=== PATIENT | female | born 1940 | race Caucasian/White ===

== ENCOUNTER → 2016-07-13 | Outpatient (CLI) | payer OTHER | LOC: KOH-I 11:40 | DX: J96.21 Acute and chronic respiratory failure with hypoxia (principal); R91.8 Other nonspecific abnormal finding of lung field | CPT/HCPCS: 71020 ==

== ENCOUNTER → 2016-08-01 | Outpatient (CLI) | payer OTHER | LOC: CT 08:54 | DX: J96.11 Chronic respiratory failure with hypoxia (principal); J43.2 Centrilobular emphysema | CPT/HCPCS: 71260; J7050; Q9962 ==

== ENCOUNTER → 2016-08-16 | Outpatient (CLI) | payer OTHER | LOC: RT 11:36 | DX: R09.02 Hypoxemia (principal) | CPT/HCPCS: 36600; 82803 ==

== ENCOUNTER 2020-03-17 18:18 | Inpatient (IN) | payer OTHER ==
[~2020-03-17] VITALS: Ht 180.3 cm; Wt 60.4 kg
[~2020-03-17 18:18] MED LIST: ALBUTEROL2.5 MG/3 M INH; CARDIZEM CD180 MG PO; COLACE 100MG C100 MG PO; IBUPROFEN800 MG PO; K-DUR TAB 20 M20 MEQ PO; LEVAQUIN500 MG PO; LEXAPRO10 MG PO; NORCO 7.5-3251 EACH PO; PHENERGAN 25 MG25 M1 PO; PREDNISONE20 MG PO; PROTONIX40 MG PO; RIZATRIPTAN10 MG PO; SPIRIVA RESPIMAT4 GM INH; SYMBICORT 16010.2 GM INH; SYNTHROID88 MCG PO; TOPAMAX 25 MG T25 MG PO; XYZAL5 MG PO
[2020-03-17 19:37] LABS: HEMOGLOBIN 11.1 gm/dl (12.3-15.3); RED BLOOD COUNT 3.7 M/UL (4.00-5.10); WHITE BLOOD COUNT 8.5 K/UL (4.5-11.0)
[2020-03-17 20:00] LABS: BUN/CREATININE RATIO 13 (0-10)
[2020-03-17] MEDS ORDERED: CLONIDINE1 EACH TD (20:51)
[2020-03-17] MEDS ORDERED: BREZTRI AEROS10.7 GM INH (21:00)
[2020-03-17] MEDS ORDERED: COZAAR 50MG TAB50 MG PO (21:08)
[2020-03-17] MEDS ORDERED: LINZESS290 MCG PO (21:09)
[2020-03-17] MEDS ORDERED: SYNTHROID88 MCG PO (21:10)
[2020-03-18 04:23] LABS: WHITE BLOOD COUNT 7.7 K/UL (4.5-11.0)
[2020-03-18 04:24] LABS: HEMOGLOBIN 8.7 gm/dl (12.3-15.3); RED BLOOD COUNT 2.84 M/UL (4.00-5.10)
[2020-03-18 04:36] LABS: BUN/CREATININE RATIO 13 (0-10)
[2020-03-19 06:21] LABS: BUN/CREATININE RATIO 11 (0-10); HEMOGLOBIN 7.3 gm/dl (12.3-15.3); WHITE BLOOD COUNT 9.2 K/UL (4.5-11.0)
[2020-03-19 06:32] LABS: RED BLOOD COUNT 2.43 M/UL (4.00-5.10)
[2020-03-19 12:58] LABS: HEMOGLOBIN 9.8 gm/dl (12.3-15.3); RED BLOOD COUNT 3.17 M/UL (4.00-5.10); WHITE BLOOD COUNT 13.6 K/UL (4.5-11.0)
[2020-03-20 04:49] LABS: BUN/CREATININE RATIO 12 (0-10)
[2020-03-20 06:40] LABS: RED BLOOD COUNT 2.16 M/UL (4.00-5.10); WHITE BLOOD COUNT 8.8 K/UL (4.5-11.0)
[2020-03-20 06:45] LABS: HEMOGLOBIN 6.7 gm/dl (12.3-15.3)
[2020-03-20 17:06] LABS: WHITE BLOOD COUNT 9.5 K/UL (4.5-11.0)
[2020-03-20 17:09] LABS: HEMOGLOBIN 8.8 gm/dl (12.3-15.3); RED BLOOD COUNT 2.74 M/UL (4.00-5.10)
[2020-03-21 04:34] LABS: HEMOGLOBIN 8.3 gm/dl (12.3-15.3); RED BLOOD COUNT 2.59 M/UL (4.00-5.10); WHITE BLOOD COUNT 8.5 K/UL (4.5-11.0)
[2020-03-21 05:12] LABS: BUN/CREATININE RATIO 10 (0-10)
[2020-03-21] MEDS ORDERED: LOVENOX40 MG/0.4 SQ (12:10)
[2020-03-21] MEDS ORDERED: BACTRIM DS TAB1 EACH PO (12:11)
[2020-03-21] MEDS ORDERED: NORCO 5-325 TA1 EACH PO (12:12)
[2020-03-22 02:25] LABS: HEMOGLOBIN 7.7 gm/dl (12.3-15.3); RED BLOOD COUNT 2.39 M/UL (4.00-5.10); WHITE BLOOD COUNT 7.5 K/UL (4.5-11.0)
[2020-03-22 15:19] LABS: HEMOGLOBIN 8.3 gm/dl (12.3-15.3)
[2020-03-23 05:56] LABS: HEMOGLOBIN 8.4 gm/dl (12.3-15.3); RED BLOOD COUNT 2.6 M/UL (4.00-5.10); WHITE BLOOD COUNT 7.5 K/UL (4.5-11.0)
[2020-03-23 06:37] LABS: BUN/CREATININE RATIO 12 (0-10)
[2020-03-23] MEDS ORDERED: FERROUS SULFAT325 M2 PO (09:35)
--- NOTE | 2020-03-23 11:45 | NUR ---
ATTEMPTED TO GIVE REPORT UNABLE TO GIVE- ADMITTING NURSE BUSY AT THIS TIME.
--- NOTE | 2020-03-23 12:43 | NUR ---
AWAITING FOR [facility]BUL[facility] TO CALL BACK FOR TRANSPORT
== END 2020-03-23 17:44 | DRG 467 ==
LOC: ER1 18:18 → CDU 20:31 → M/S 20:31
PROVIDERS: Family Medicine; Internal Medicine; Orthopaedic Surgery; ADMIT Internal Medicine
PROC: 0SRC0J9 Replacement of Right Knee Joint with Synthetic Substitute, Cemented, Open Approach (ICD-10-PCS; 2020-03-19)
PROC: 0SPC0JZ Removal of Synthetic Substitute from Right Knee Joint, Open Approach (ICD-10-PCS; principal; 2020-03-19 08:30)
DX: S72.401A Unspecified fracture of lower end of right femur, initial encounter for closed fracture (principal); M97.11XA Periprosthetic fracture around internal prosthetic right knee joint, initial encounter; E87.1 Hypo-osmolality and hyponatremia; D62 Acute posthemorrhagic anemia; W01.0XXA Fall on same level from slipping, tripping and stumbling without subsequent striking against object, initial encounter; Y92.009 Unspecified place in unspecified non-institutional (private) residence as the place of occurrence of the external cause; J44.9 Chronic obstructive pulmonary disease, unspecified; E03.9 Hypothyroidism, unspecified; I10 Essential (primary) hypertension; F41.9 Anxiety disorder, unspecified; K21.9 Gastro-esophageal reflux disease without esophagitis; Z90.49 Acquired absence of other specified parts of digestive tract; Z90.710 Acquired absence of both cervix and uterus; Z87.891 Personal history of nicotine dependence; Z20.822 Contact with and (suspected) exposure to COVID-19; Z79.899 Other long term (current) drug therapy
CPT/HCPCS: 36415; 36430; 51702; 71045; 73502; 73552; 73560; 73590; 73610; 73700; 80048; 80053; 81001; 83540; 83550; 84295; 84439; 84443; 85014; 85018; 85025; 85027; 85610; 85730; 86850; 86870; 86900; 86901; 86902; 86905; 86920; 86922; 87635; 93005; 94640; 94760; 97110; 97110-GP-CQ; 97162; 97166; 97530-GP-CQ; 99284; C1713; C1776; J1100; J1650; J2001; J2270; J2405; J2704; J2710; J3010; J7030; J7050; J7120; P9016; U0002

== ENCOUNTER → 2020-05-12 | Outpatient (CLI) | payer OTHER ==
[~2020-05-12] MED LIST changes: +BACTRIM DS TAB1 EACH PO; +BREZTRI AEROS10.7 GM INH; +CLONIDINE1 EACH TD; +COZAAR 50MG TAB50 MG PO; +FERROUS SULFAT325 M2 PO; +LINZESS290 MCG PO; +LOVENOX40 MG/0.4 SQ; +NORCO 5-325 TA1 EACH PO
== END ==
LOC: WCC 14:30
DX: T81.30XA Disruption of wound, unspecified, initial encounter (principal)

== ENCOUNTER → 2020-05-19 | Outpatient (CLI) | payer OTHER | LOC: WCC 10:56 | DX: T81.30XA Disruption of wound, unspecified, initial encounter (principal) | CPT/HCPCS: 97605 ==

== ENCOUNTER → 2020-05-26 | Outpatient (CLI) | payer OTHER | LOC: WCC 11:30 | PROC: 0JBN0ZZ Excision of Right Lower Leg Subcutaneous Tissue and Fascia, Open Approach (ICD-10-PCS; principal; 2020-05-26) | DX: T81.31XA Disruption of external operation (surgical) wound, not elsewhere classified, initial encounter (principal); I96 Gangrene, not elsewhere classified; I10 Essential (primary) hypertension; J44.9 Chronic obstructive pulmonary disease, unspecified; M19.90 Unspecified osteoarthritis, unspecified site; H26.9 Unspecified cataract; D64.9 Anemia, unspecified; Z88.0 Allergy status to penicillin; Z91.040 Latex allergy status; Z79.891 Long term (current) use of opiate analgesic; Z79.899 Other long term (current) drug therapy; Y83.8 Other surgical procedures as the cause of abnormal reaction of the patient, or of later complication, without mention of misadventure at the time of the procedure ==

== ENCOUNTER → 2020-06-02 | Outpatient (CLI) | payer OTHER | LOC: WCC 09:30 | PROC: 0JBN0ZZ Excision of Right Lower Leg Subcutaneous Tissue and Fascia, Open Approach (ICD-10-PCS; principal; 2020-06-02) | DX: T81.31XA Disruption of external operation (surgical) wound, not elsewhere classified, initial encounter (principal); I96 Gangrene, not elsewhere classified; J44.9 Chronic obstructive pulmonary disease, unspecified; I10 Essential (primary) hypertension; H26.9 Unspecified cataract; D64.9 Anemia, unspecified; M19.90 Unspecified osteoarthritis, unspecified site; Z79.891 Long term (current) use of opiate analgesic; Z79.899 Other long term (current) drug therapy; Z88.0 Allergy status to penicillin; Z91.040 Latex allergy status; Y83.8 Other surgical procedures as the cause of abnormal reaction of the patient, or of later complication, without mention of misadventure at the time of the procedure ==

== ENCOUNTER → 2020-06-02 | Outpatient (CLI) | payer OTHER | LOC: RAD 10:32 | DX: M25.561 Pain in right knee (principal); M79.89 Other specified soft tissue disorders; Z96.651 Presence of right artificial knee joint | CPT/HCPCS: 73562 ==

== ENCOUNTER → 2020-06-09 | Outpatient (CLI) | payer OTHER | LOC: WCC 13:36 | PROC: 0KBS0ZZ Excision of Right Lower Leg Muscle, Open Approach (ICD-10-PCS; principal; 2020-06-09) | DX: T81.31XA Disruption of external operation (surgical) wound, not elsewhere classified, initial encounter (principal); I96 Gangrene, not elsewhere classified; J44.9 Chronic obstructive pulmonary disease, unspecified; I10 Essential (primary) hypertension; H26.9 Unspecified cataract; D64.9 Anemia, unspecified; M19.90 Unspecified osteoarthritis, unspecified site; Z88.0 Allergy status to penicillin; Z91.040 Latex allergy status; Z79.891 Long term (current) use of opiate analgesic; Z79.899 Other long term (current) drug therapy; Y83.8 Other surgical procedures as the cause of abnormal reaction of the patient, or of later complication, without mention of misadventure at the time of the procedure ==

== ENCOUNTER → 2020-06-16 | Outpatient (CLI) | payer OTHER | LOC: WCC 14:00 | PROC: 0JBN0ZZ Excision of Right Lower Leg Subcutaneous Tissue and Fascia, Open Approach (ICD-10-PCS; principal; 2020-06-16) | DX: T81.31XA Disruption of external operation (surgical) wound, not elsewhere classified, initial encounter (principal); I96 Gangrene, not elsewhere classified; J44.9 Chronic obstructive pulmonary disease, unspecified; K21.9 Gastro-esophageal reflux disease without esophagitis; G43.909 Migraine, unspecified, not intractable, without status migrainosus; E03.9 Hypothyroidism, unspecified; H26.9 Unspecified cataract; D64.9 Anemia, unspecified; M19.90 Unspecified osteoarthritis, unspecified site; I10 Essential (primary) hypertension; Z79.891 Long term (current) use of opiate analgesic; Z79.899 Other long term (current) drug therapy; Z88.0 Allergy status to penicillin; Z91.040 Latex allergy status; Y83.8 Other surgical procedures as the cause of abnormal reaction of the patient, or of later complication, without mention of misadventure at the time of the procedure ==

== ENCOUNTER → 2020-06-23 | Outpatient (CLI) | payer OTHER | LOC: WCC 10:23 | DX: T81.31XA Disruption of external operation (surgical) wound, not elsewhere classified, initial encounter (principal); J44.9 Chronic obstructive pulmonary disease, unspecified; I10 Essential (primary) hypertension | CPT/HCPCS: G0463 ==

== ENCOUNTER 2020-06-24 15:41 | Emergency (ER) | payer OTHER | END 2020-06-24 18:10 | disposition home or self-care (01) | LOC: ER1 15:41 | DX: M79.672 Pain in left foot (principal); M25.572 Pain in left ankle and joints of left foot; Z88.0 Allergy status to penicillin; Z91.040 Latex allergy status; Z88.5 Allergy status to narcotic agent; I10 Essential (primary) hypertension | CPT/HCPCS: 73610; 73630; 99283 ==

== ENCOUNTER → 2020-09-26 | Outpatient (CLI) | payer OTHER ==
[~2020-09-26] MED LIST changes: +GOODY'S EX-STR1 EAC1 PO; +HYDROCODON-ACE1 EAC2 PO; +LEXAPRO5 MG PO; +LINZESS145 MCG PO; +LIPITOR20 MG PO; -NORCO 5-325 TA1 EACH PO; +OXYBUTYNIN CHLOR5 MG PO; +VENTOLIN HFA 66.7 GM INH
== END ==
LOC: KOH-I 10:00
DX: Z01.818 Encounter for other preprocedural examination (principal); M19.012 Primary osteoarthritis, left shoulder
CPT/HCPCS: 73200

== ENCOUNTER 2020-10-21 11:09 | Inpatient (IN) | payer OTHER ==
[~2020-10-21] VITALS: Ht 149.9 cm; Wt 55.5 kg
[~2020-10-21 11:09] MED LIST changes: -BREZTRI AEROS10.7 GM INH; -COLACE 100MG C100 MG PO; -GOODY'S EX-STR1 EAC1 PO; -HYDROCODON-ACE1 EAC2 PO; -LEXAPRO5 MG PO; -LINZESS145 MCG PO; -LINZESS290 MCG PO; -LIPITOR20 MG PO; -OXYBUTYNIN CHLOR5 MG PO; -RIZATRIPTAN10 MG PO; -VENTOLIN HFA 66.7 GM INH
[2020-10-21 11:40] LABS: HEMOGLOBIN 12.8 gm/dl (12.3-15.3); RED BLOOD COUNT 4.22 M/UL (4.00-5.10); WHITE BLOOD COUNT 1.6 K/UL (4.5-11.0)
[2020-10-21 12:03] LABS: BUN/CREATININE RATIO 15 (0-10)
[2020-10-21] MEDS ORDERED: HYDROCODON-ACE1 EAC2 PO (12:12)
[2020-10-21] MEDS ORDERED: LIPITOR20 MG PO (16:43)
[2020-10-21] MEDS ORDERED: OXYBUTYNIN CHLOR5 MG PO (16:43)
[2020-10-21] MEDS ORDERED: LEXAPRO5 MG PO (16:43)
[2020-10-21] MEDS ORDERED: VENTOLIN HFA 66.7 GM INH (16:44)
[2020-10-21] MEDS ORDERED: LINZESS290 MCG PO (17:22)
[2020-10-21] MEDS ORDERED: GOODY'S EX-STR1 EAC1 PO (17:26)
[2020-10-21] MEDS ORDERED: BREZTRI AEROS10.7 GM INH (21:00)
[2020-10-21] MEDS ORDERED: LINZESS145 MCG PO (21:09)
[2020-10-21] MEDS ORDERED: RIZATRIPTAN10 MG PO (22:01)
[2020-10-21] MEDS ORDERED: COLACE 100MG C100 MG PO (22:19)
[2020-10-22 04:10] LABS: HEMOGLOBIN 11.9 gm/dl (12.3-15.3); RED BLOOD COUNT 4.09 M/UL (4.00-5.10)
[2020-10-22 04:18] LABS: WHITE BLOOD COUNT 1.3 K/UL (4.5-11.0)
[2020-10-22 04:26] LABS: BUN/CREATININE RATIO 13 (0-10)
[2020-10-23 03:15] LABS: HEMOGLOBIN 11.3 gm/dl (12.3-15.3); RED BLOOD COUNT 3.8 M/UL (4.00-5.10)
[2020-10-23 03:26] LABS: WHITE BLOOD COUNT 2.3 K/UL (4.5-11.0)
[2020-10-23 03:33] LABS: BUN/CREATININE RATIO 13 (0-10)
[2020-10-24 08:37] LABS: BUN/CREATININE RATIO 13 (0-10)
--- NOTE | 2020-10-24 15:11 | NUR ---
1505: PER REQUEST OF DR ACEVEDO, PATIENT OXYGEN (2 LPM N/C) REMOVED. WILL MONITOR SPO2. CURRENTLY SPO2 95%. 1520: SPO2 NOTED AT 93% ON R/A. DR ACEVEDO NOTIFIED, WILL COME SEE PATIENT FOR POSSIBLE DISCHARGE HOME.
[2020-10-24 15:15] LABS: HEMOGLOBIN 11.2 gm/dl (12.3-15.3); RED BLOOD COUNT 3.67 M/UL (4.00-5.10)
== END 2020-10-24 18:51 | disposition home or self-care (01) | DRG 177 ==
LOC: ER1 11:09 → CDU 16:09 → MED SURG 4 10-22 13:33
PROVIDERS: Physician Assistant; ADMIT Internal Medicine
PROC: 3E0333Z Introduction of Anti-inflammatory into Peripheral Vein, Percutaneous Approach (ICD-10-PCS; 2020-10-21)
PROC: XW033E5 Introduction of Remdesivir Anti-infective into Peripheral Vein, Percutaneous Approach, New Technology Group 5 (ICD-10-PCS; 2020-10-21)
PROC: 8E0ZXY6 Isolation (ICD-10-PCS; 2020-10-21)
PROC: XW13325 Transfusion of Convalescent Plasma (Nonautologous) into Peripheral Vein, Percutaneous Approach, New Technology Group 5 (ICD-10-PCS; principal; 2020-10-22)
DX: U07.1 COVID-19 (principal); J96.01 Acute respiratory failure with hypoxia; E87.1 Hypo-osmolality and hyponatremia; I10 Essential (primary) hypertension; F41.9 Anxiety disorder, unspecified; Z96.611 Presence of right artificial shoulder joint; Z96.652 Presence of left artificial knee joint; D72.819 Decreased white blood cell count, unspecified; K21.9 Gastro-esophageal reflux disease without esophagitis; E03.9 Hypothyroidism, unspecified; F17.210 Nicotine dependence, cigarettes, uncomplicated; J44.9 Chronic obstructive pulmonary disease, unspecified; Z86.73 Personal history of transient ischemic attack (TIA), and cerebral infarction without residual deficits; Z87.81 Personal history of (healed) traumatic fracture; Z79.82 Long term (current) use of aspirin; Z90.49 Acquired absence of other specified parts of digestive tract; Z90.710 Acquired absence of both cervix and uterus; Z88.0 Allergy status to penicillin; Z91.040 Latex allergy status
CPT/HCPCS: 36415; 71045; 80048; 80053; 82728; 83615; 85025; 85379; 86140; 86900; 86901; 86927; 94640; 94760; 96374; 96375; 99285; J1100; J1650; J2405; J7030

== ENCOUNTER → 2020-11-02 | Outpatient (CLI) | payer OTHER ==
[~2020-11-02] MED LIST changes: +BREZTRI AEROS10.7 GM INH; +COLACE 100MG C100 MG PO; +GOODY'S EX-STR1 EAC1 PO; +HYDROCODON-ACE1 EAC2 PO; +LEXAPRO5 MG PO; +LINZESS145 MCG PO; +LINZESS290 MCG PO; +LIPITOR20 MG PO; +OXYBUTYNIN CHLOR5 MG PO; +RIZATRIPTAN10 MG PO; +VENTOLIN HFA 66.7 GM INH
== END ==
LOC: KOH-I 09:11
DX: R10.84 Generalized abdominal pain (principal); R05 Cough; R14.3 Flatulence
CPT/HCPCS: 71046; 74018

== ENCOUNTER → 2020-12-22 | Outpatient (CLI) | payer OTHER | LOC: KOH-I 11:21 | DX: Z01.818 Encounter for other preprocedural examination (principal); M12.812 Other specific arthropathies, not elsewhere classified, left shoulder; R91.1 Solitary pulmonary nodule | CPT/HCPCS: 73200 ==

== ENCOUNTER 2021-01-16 20:02 | Inpatient (IN) | payer OTHER ==
[~2021-01-16] VITALS: Ht 152.4 cm; Wt 56.7 kg
[~2021-01-16 20:02] MED LIST changes: +DOXYCYCLINE HY100 M2 PO; -HYDROCODON-ACE1 EAC2 PO; -LINZESS290 MCG PO
[2021-01-16 20:55] LABS: HEMOGLOBIN 12.3 gm/dl (12.3-15.3); RED BLOOD COUNT 4.05 M/UL (4.00-5.10)
[2021-01-16 21:08] LABS: BUN/CREATININE RATIO 16 (0-10)
[2021-01-17] MEDS ORDERED: LINZESS290 MCG PO (17:22)
[2021-01-17] MEDS ORDERED: SYNTHROID75 MCG PO (21:10)
[2021-01-18 04:35] LABS: HEMOGLOBIN 11.4 gm/dl (12.3-15.3); RED BLOOD COUNT 3.86 M/UL (4.00-5.10); WHITE BLOOD COUNT 7.4 K/UL (4.5-11.0)
[2021-01-18 05:03] LABS: BUN/CREATININE RATIO 16 (0-10)
[2021-01-19 08:27] LABS: HEMOGLOBIN 11.9 gm/dl (12.3-15.3); RED BLOOD COUNT 3.98 M/UL (4.00-5.10)
[2021-01-19 09:09] LABS: BUN/CREATININE RATIO 18 (0-10)
[2021-01-20 10:37] LABS: HEMOGLOBIN 11.8 gm/dl (12.3-15.3); RED BLOOD COUNT 3.9 M/UL (4.00-5.10); WHITE BLOOD COUNT 7.7 K/UL (4.5-11.0)
[2021-01-20] MEDS ORDERED: IPRAT-ALBUT 0.5-3 ML NEB (20:53)
[2021-01-20] MEDS ORDERED: PREDNISONE 20 M20 MG PO (20:53)
[2021-01-20] MEDS ORDERED: FLORANEX GRANU1 EACH PO (20:53)
[2021-01-20] MEDS ORDERED: LOPRESSOR 25 MG25 MG PO (20:53)
[2021-01-20] MEDS ORDERED: BENZONATATE100 MG PO (20:53)
[2021-01-21] MEDS ORDERED: HYDROCODON-ACE1 EAC2 PO (12:12)
[2021-01-21] MEDS ORDERED: PREDNISONE10 MG PO (21:05)
== END 2021-01-20 22:00 | disposition home or self-care (01) | DRG 189 ==
LOC: ER1 20:02 → CDU 01-17 00:22 → PROG CARE 01-17 00:22
PROVIDERS: Family Medicine; Internal Medicine; ADMIT Internal Medicine
PROC: 5A09357 Assistance with Respiratory Ventilation, Less than 24 Consecutive Hours, Continuous Positive Airway Pressure (ICD-10-PCS; principal; 2021-01-17)
DX: J96.22 Acute and chronic respiratory failure with hypercapnia (principal); E43 Unspecified severe protein-calorie malnutrition; Z20.822 Contact with and (suspected) exposure to COVID-19; J44.1 Chronic obstructive pulmonary disease with (acute) exacerbation; E87.1 Hypo-osmolality and hyponatremia; F41.9 Anxiety disorder, unspecified; F32.A Depression, unspecified; K21.9 Gastro-esophageal reflux disease without esophagitis; E03.9 Hypothyroidism, unspecified; Z96.611 Presence of right artificial shoulder joint; Z96.651 Presence of right artificial knee joint; F17.210 Nicotine dependence, cigarettes, uncomplicated; E78.5 Hyperlipidemia, unspecified; E86.0 Dehydration; Z68.24 Body mass index [BMI] 24.0-24.9, adult; I11.9 Hypertensive heart disease without heart failure; Z86.73 Personal history of transient ischemic attack (TIA), and cerebral infarction without residual deficits; Z99.81 Dependence on supplemental oxygen; Z91.14 Patient's other noncompliance with medication regimen; Z87.442 Personal history of urinary calculi; Z90.49 Acquired absence of other specified parts of digestive tract; Z90.710 Acquired absence of both cervix and uterus; Z88.0 Allergy status to penicillin; Z91.040 Latex allergy status
CPT/HCPCS: 36415; 71045; 71250; 80053; 81001; 82140; 82550; 82553; 82607; 82728; 82746; 83605; 83735; 83880; 84439; 84443; 84484; 84550; 85025; 85610; 86140; 87040; 87086; 93005; 94640; 94660; 94664; 94667; 94668; 94760; 96374; 97161; 99285; C9113; J0696; J1650; J2920; J2930; Q9967; U0002

== ENCOUNTER 2021-01-21 10:58 | Inpatient (IN) | payer OTHER ==
[~2021-01-21] VITALS: Ht 149.9 cm; Wt 61.2 kg
[~2021-01-21 10:58] MED LIST changes: +BENZONATATE100 MG PO; +FLORANEX GRANU1 EACH PO; +IPRAT-ALBUT 0.5-3 ML NEB; +LINZESS290 MCG PO; +LOPRESSOR 25 MG25 MG PO; +PREDNISONE 20 M20 MG PO; +SYNTHROID75 MCG PO
[2021-01-21 12:01] LABS: HEMOGLOBIN 14.2 gm/dl (12.3-15.3); RED BLOOD COUNT 4.68 M/UL (4.00-5.10); WHITE BLOOD COUNT 13.3 K/UL (4.5-11.0)
[2021-01-21] MEDS ORDERED: HYDROCODON-ACE1 EAC2 PO (12:12)
[2021-01-21 13:16] LABS: BUN/CREATININE RATIO 17 (0-10)
[2021-01-21] MEDS ORDERED: PREDNISONE10 MG PO (21:05)
[2021-01-22 05:41] LABS: WHITE BLOOD COUNT 12.1 K/UL (4.5-11.0)
[2021-01-22 05:43] LABS: HEMOGLOBIN 11.9 gm/dl (12.3-15.3); RED BLOOD COUNT 4.12 M/UL (4.00-5.10)
[2021-01-22 06:05] LABS: BUN/CREATININE RATIO 18 (0-10)
--- NOTE | 2021-01-22 12:08 | NUR ---
PT REFUSING TURNS OR TIERNEY CATHETER PLACEMENT AT THIS TIME. PT EDUCATED OF RISK OF SKIN BREAKDOWN FROM REFUSING TURNS, STATES SHE IS COMFORTABLE AT THE MOMENT AND WANTS TO BE LEFT ALONE. EXTERNAL TIERNEY PLACED. WCM.
[2021-01-23 05:42] LABS: RED BLOOD COUNT 3.81 M/UL (4.00-5.10)
[2021-01-23 05:43] LABS: WHITE BLOOD COUNT 15.8 K/UL (4.5-11.0)
[2021-01-23 05:59] LABS: BUN/CREATININE RATIO 30 (0-10)
[2021-01-24 04:28] LABS: HEMOGLOBIN 11.3 gm/dl (12.3-15.3); RED BLOOD COUNT 3.73 M/UL (4.00-5.10); WHITE BLOOD COUNT 13.6 K/UL (4.5-11.0)
[2021-01-24 04:50] LABS: BUN/CREATININE RATIO 32 (0-10)
[2021-01-25 05:20] LABS: HEMOGLOBIN 11.8 gm/dl (12.3-15.3); RED BLOOD COUNT 3.95 M/UL (4.00-5.10)
[2021-01-25 05:21] LABS: WHITE BLOOD COUNT 20.1 K/UL (4.5-11.0)
[2021-01-25 06:01] LABS: BUN/CREATININE RATIO 34 (0-10)
[2021-01-26 05:25] LABS: HEMOGLOBIN 12.4 gm/dl (12.3-15.3); RED BLOOD COUNT 4.1 M/UL (4.00-5.10); WHITE BLOOD COUNT 22.7 K/UL (4.5-11.0)
[2021-01-26 05:45] LABS: BUN/CREATININE RATIO 45 (0-10)
[2021-01-27 04:38] LABS: BUN/CREATININE RATIO 57 (0-10)
[2021-01-28 04:46] LABS: WHITE BLOOD COUNT 17.2 K/UL (4.5-11.0)
[2021-01-28 04:50] LABS: HEMOGLOBIN 10.2 gm/dl (12.3-15.3); RED BLOOD COUNT 3.36 M/UL (4.00-5.10)
[2021-01-28 05:02] LABS: BUN/CREATININE RATIO 59 (0-10)
[2021-01-29 04:22] LABS: HEMOGLOBIN 10.4 gm/dl (12.3-15.3); RED BLOOD COUNT 3.51 M/UL (4.00-5.10); WHITE BLOOD COUNT 14.8 K/UL (4.5-11.0)
[2021-01-29 04:55] LABS: BUN/CREATININE RATIO 72 (0-10)
[2021-01-30 05:26] LABS: HEMOGLOBIN 10.9 gm/dl (12.3-15.3); RED BLOOD COUNT 3.66 M/UL (4.00-5.10); WHITE BLOOD COUNT 15.8 K/UL (4.5-11.0)
[2021-01-30 06:13] LABS: BUN/CREATININE RATIO 72 (0-10)
[2021-01-31 05:37] LABS: HEMOGLOBIN 11.1 gm/dl (12.3-15.3); RED BLOOD COUNT 3.74 M/UL (4.00-5.10); WHITE BLOOD COUNT 17.2 K/UL (4.5-11.0)
[2021-01-31 06:09] LABS: BUN/CREATININE RATIO 69 (0-10)
[2021-02-01 05:01] LABS: RED BLOOD COUNT 3.67 M/UL (4.00-5.10); WHITE BLOOD COUNT 15.7 K/UL (4.5-11.0)
[2021-02-01 05:21] LABS: BUN/CREATININE RATIO 62 (0-10)
--- NOTE | 2021-02-02 03:16 | NUR ---
GAVE COMPLETE BEDBATH, PATIENT HAS EXCORIATION AROUND PERINEAL AREA AND INNER THIGHS PILLOW CASE PLACED TO WICK MOISTURE, EXCORIATION UNDER BILATERAL BREASTS WITH THE RIGHT SIDE BEING WORSE THEN LEFT, BLISTER WITH AREA OF PINK BORDER WHICH IS SLOW TO KATIA NOTED ON TOP LEFT BUTTOCKS, ALLEVYN DRESSING PLACED OVER AREA, PATIENT NOTED TO HAVE EXTERNAL HEMRROIDS AT RECTUM, LARGE HERNIA MID ABDOMEN, CHANGED RIGHT SIDED CHEST TUBE DRESSING, WOUND IS WELL APPROXIMATED AND STITCHED, PATIENT FLOATED ON PILLOWS
[2021-02-02 04:40] LABS: HEMOGLOBIN 10.7 gm/dl (12.3-15.3); RED BLOOD COUNT 3.62 M/UL (4.00-5.10); WHITE BLOOD COUNT 15.1 K/UL (4.5-11.0)
[2021-02-02 05:00] LABS: BUN/CREATININE RATIO 60 (0-10)
--- NOTE | 2021-02-03 02:34 | NUR ---
patient had soft/loose large bowel movement which was dark brown in color/ patient cleaned external hemorroids noted which have scant bloody drainage/closed blister on left buttocks opened during cleaning, dressed changed allevyn dressing changed to ensure no stool on dressing or in wound, pericare and cath care completed/ sheets changed and straightened, HOB @ 30 degrees/ patient floated on pillows
[2021-02-03 05:00] LABS: RED BLOOD COUNT 3.36 M/UL (4.00-5.10); WHITE BLOOD COUNT 16.6 K/UL (4.5-11.0)
[2021-02-03 05:21] LABS: BUN/CREATININE RATIO 51 (0-10)
--- NOTE | 2021-02-03 06:05 | NUR ---
PATIENT HAD VERY SMALL SOFT BOWEL MOVEMENT BROWN IN COLOR, PATIENT CLEANED, SHEETS STRAIGHTENED/ROOM STRAIGHTENED
--- NOTE | 2021-02-04 04:53 | NUR ---
PER FAMILY DID NOT TURN PATIENT
--- NOTE | 2021-02-05 04:44 | NUR ---
patient is resting, family does not want patient turned at any time unless she looks uncomfortable or has stooled, patient is resting quietly on comfort care and no interventions are needed
== END 2021-02-06 16:30 | disposition expired | DRG 163 ==
LOC: ER1 10:58 → CCU 14:13 → CDU 14:13 → CCU 21:03 → MED SURG 4 02-06 11:16
PROVIDERS: Internal Medicine; Internal Medicine Pulmonary Disease; Physician Assistant; ADMIT Internal Medicine
PROC: 5A09457 Assistance with Respiratory Ventilation, 24-96 Consecutive Hours, Continuous Positive Airway Pressure (ICD-10-PCS; 2021-01-21)
PROC: 5A1955Z Respiratory Ventilation, Greater than 96 Consecutive Hours (ICD-10-PCS; 2021-01-24)
PROC: 0BH18EZ Insertion of Endotracheal Airway into Trachea, Via Natural or Artificial Opening Endoscopic (ICD-10-PCS; 2021-01-24)
PROC: 3E033XZ Introduction of Vasopressor into Peripheral Vein, Percutaneous Approach (ICD-10-PCS; 2021-01-24)
PROC: 0W9B00Z Drainage of Left Pleural Cavity with Drainage Device, Open Approach (ICD-10-PCS; 2021-01-24)
PROC: 0W9900Z Drainage of Right Pleural Cavity with Drainage Device, Open Approach (ICD-10-PCS; 2021-01-24)
PROC: B24BZZZ Ultrasonography of Heart with Aorta (ICD-10-PCS; 2021-01-24)
PROC: 05H533Z Insertion of Infusion Device into Right Subclavian Vein, Percutaneous Approach (ICD-10-PCS; 2021-01-24)
PROC: B546ZZA Ultrasonography of Right Subclavian Vein, Guidance (ICD-10-PCS; 2021-01-24)
PROC: 0BCM8ZZ Extirpation of Matter from Bilateral Lungs, Via Natural or Artificial Opening Endoscopic (ICD-10-PCS; principal; 2021-01-26 12:00)
PROC: 0BJ08ZZ Inspection of Tracheobronchial Tree, Via Natural or Artificial Opening Endoscopic (ICD-10-PCS; 2021-01-30)
PROC: 0DH67UZ Insertion of Feeding Device into Stomach, Via Natural or Artificial Opening (ICD-10-PCS; 2021-01-30)
DX: J96.21 Acute and chronic respiratory failure with hypoxia (principal); E43 Unspecified severe protein-calorie malnutrition; J18.9 Pneumonia, unspecified organism; J81.0 Acute pulmonary edema; J93.0 Spontaneous tension pneumothorax; E87.1 Hypo-osmolality and hyponatremia; J44.1 Chronic obstructive pulmonary disease with (acute) exacerbation; I47.1 Supraventricular tachycardia; J44.0 Chronic obstructive pulmonary disease with (acute) lower respiratory infection; J95.812 Postprocedural air leak; J98.11 Atelectasis; Z20.822 Contact with and (suspected) exposure to COVID-19; R57.8 Other shock; I10 Essential (primary) hypertension; J96.22 Acute and chronic respiratory failure with hypercapnia; Y83.9 Surgical procedure, unspecified as the cause of abnormal reaction of the patient, or of later complication, without mention of misadventure at the time of the procedure; Y82.9 Unspecified medical devices associated with adverse incidents; Y92.238 Other place in hospital as the place of occurrence of the external cause; J98.2 Interstitial emphysema; F41.9 Anxiety disorder, unspecified; F32.A Depression, unspecified; G47.00 Insomnia, unspecified; K21.9 Gastro-esophageal reflux disease without esophagitis; E03.9 Hypothyroidism, unspecified; Z96.611 Presence of right artificial shoulder joint; Z96.651 Presence of right artificial knee joint; E78.5 Hyperlipidemia, unspecified; I27.20 Pulmonary hypertension, unspecified; I08.2 Rheumatic disorders of both aortic and tricuspid valves; I48.0 Paroxysmal atrial fibrillation; K58.9 Irritable bowel syndrome, unspecified; Z82.3 Family history of stroke; Z88.0 Allergy status to penicillin; Z87.442 Personal history of urinary calculi; Z86.73 Personal history of transient ischemic attack (TIA), and cerebral infarction without residual deficits; Z99.81 Dependence on supplemental oxygen; Z90.49 Acquired absence of other specified parts of digestive tract; Z90.710 Acquired absence of both cervix and uterus; Z91.14 Patient's other noncompliance with medication regimen; Z87.891 Personal history of nicotine dependence; Z86.16 Personal history of COVID-19; Z82.49 Family history of ischemic heart disease and other diseases of the circulatory system; Z91.040 Latex allergy status
CPT/HCPCS: ECHO; 31500; 32551; 36415; 36556; 36600; 71045; 71250; 80048; 80053; 80202; 82550; 82553; 82803; 83605; 83735; 83874; 83880; 84100; 84484; 85025; 86140; 87040; 87070; 87077; 87086; 87186; 87205; 93005; 93306; 93970; 94002; 94003; 94640; 94660; 94664; 94760; 99285; A6212; C9113; J0330; J1205; J1650; J1940; J1956; J2020; J2060; J2185; J2250; J2270; J2704; J2920; J2930; J3010; J3370; J3480; J7030; J7050; P9047